=== PATIENT | female | born 1985 | race African-American/Black ===

== ENCOUNTER 2019-09-04 01:36 | Emergency (ER) | payer SELFPAY ==
[~2019-09-04] VITALS: Ht 154.9 cm; Wt 76.2 kg
[2019-09-04 01:36] VITALS: BP 136/85
--- NOTE | 2019-09-04 01:45 | PHYS DOC ---
Adult General Chief Complaint Chief Complaint: UPPER EXTREMITY PAIN HPI HPI Patient is a 34-year-old female who presents with complaint of right upper chest wall discomfort that started earlier this afternoon when she was at work. Patient states that she had bent down to open her locker and felt a pull in her chest. She states that since that time she has had continued pain and states that it is worsened with certain movements. She denies any nausea, vomiting or diaphoresis. Patient states that she is 2 months . She denies any fever. She rates pain as moderate.[] Review of Systems Review of Systems Constitutional: Denies fever or chills [] Respiratory: Denies cough or shortness of breath [] Cardiovascular: No additional information not addressed in HPI [] GI: Denies abdominal pain, nausea, vomiting or diarrhea [] Musculoskeletal: Complains of right upper chest wall pain [] Integument: Denies rash or skin lesions [] All other systems were reviewed and found to be within normal limits, except as documented in this note. Physical Exam Physical Exam Constitutional: Well developed, well nourished, no acute distress, non-toxic appearance. [] HENT: Normocephalic, atraumatic, bilateral external ears normal, oropharynx moist, no oral exudates, nose normal. [] Eyes: PERRLA, EOMI, conjunctiva normal, no discharge. [] Neck: Normal range of motion, no tenderness, supple, no stridor. [] Cardiovascular: Regular rate and rhythm. There is reproducible chest wall tenderness in the right upper chest just below the clavicle.[] Lungs & Thorax: Bilateral breath sounds clear to auscultation [] Abdomen: Bowel sounds normal, soft, no tenderness. [] Skin: Warm, dry, no erythema, no rash. [] Extremities: No tenderness, no cyanosis, no clubbing, ROM intact. [] Neurologic: Alert and oriented X 3, no focal deficits noted. [] EKG EKG [] Radiology/Procedures Radiology/Procedures [] Course & Med Decision Making Course & Med Decision Making Pertinent Labs and Imaging studies reviewed. (See chart for details) [] Dragon Disclaimer Dragon Disclaimer This electronic medical record was generated, in whole or in part, using a voice recognition dictation system. Departure Departure Impression: Primary Impression: Chest wall pain Disposition: 07 AGAINST MEDICAL ADVICE (an MSE was performed and patient elected to not be treated) Condition: STABLE NIKOLAI MARCUM Jr. DO Sep 04, 2019 01:45
== END 2019-09-04 01:45 | disposition left against medical advice (07) ==
LOC: ER 01:36
DX: O26.891 Other specified pregnancy related conditions, first trimester (principal); R07.89 Other chest pain; Z3A.08 8 weeks gestation of pregnancy
CPT/HCPCS: 99281-25